=== PATIENT | male | born 1980 | race Asian ===

== ENCOUNTER 2017-12-12 11:27 | Emergency (ER) | payer BC ==
[~2017-12-12] VITALS: Ht 177.8 cm; Wt 87.1 kg
[2017-12-12 11:33] VITALS: BP_SYST 147
--- NOTE | 2017-12-12 11:35 | NUR ---
Placed in room 03 . Placed on property assessment monitor, blood pressure machine and pulse oximeter. To gown for exam. Side rails up. Report given to Judith FREIRE by Nate FREIRE.
--- NOTE | 2017-12-12 11:38 | NUR ---
Pt complains of pain to left of underarm that radiates to shoulder, forearm and wrist since yesterday. Pt states at times it radites to chest. Per patient, he thought he was sore from doing physical activities the day before but today pain was still present. Per patient, he complains of "pinching" pain. Pt states he has been nauseous, but denies vomiting. No shortness of breath noted. No other injuries/complaints per patient or noted.
--- NOTE | 2017-12-12 11:39 | NUR ---
ER Dr. Figueroa at bedside examining patient.
--- NOTE | 2017-12-12 11:48 | NUR ---
Radiology at patient bedside. Pt tolerated well.
[2017-12-12] MEDS: KETOROLAC TROMETHAMINE 60 MG/2 ML VIAL IM ONE (11:53)
--- NOTE | 2017-12-12 11:56 | NUR ---
Medication was given, pt tolerated well. No adverse reaction, will continue to monitor.
[2017-12-12 12:25] LABS: BASOPHILS # (AUTO) 0.1 K/uL (0.0-0.2); BASOPHILS % (AUTO) 1.3 % (0.0-2.0); EOSINOPHILS # (AUTO) 0.1 K/uL (0.0-0.4); EOSINOPHILS % (AUTO) 1.8 % (0.0-4.0); HEMOGLOBIN 17.5 g/dL (14.0-18.0); LYMPHOCYTES # (AUTO) 1.8 K/uL (1.0-5.5); LYMPHOCYTES % (AUTO) 22.2 % (20.5-51.5); MEAN CORPUSCULAR HEMOGLOBIN 30 pg (27-31); MEAN CORPUSCULAR HGB CONC 34 % (32-36); MEAN CORPUSCULAR VOLUME 89 fL (79.0-98.0); MONOCYTES # (AUTO) 0.4 K/uL (0.0-1.0); MONOCYTES % (AUTO) 4.6 % (1.7-9.3); NEUTROPHILS # (AUTO) 5.9 K/uL (1.8-7.7); NEUTROPHILS % (AUTO) 70.1 % (40.0-70.0); PLATELET COUNT (AUTO) 275 K/uL (130-430); RED BLOOD CELL COUNT(AUTO) 5.82 MIL/uL (4.2-6.2); RED CELL DISTRIBUTION WIDTH 11.3 % (9.0-15.0); WHITE BLOOD COUNT (AUTO) 8.3 K/uL (4.8-10.8)
[2017-12-12] MEDS: ONDANSETRON 4 MG ODT TAB PO ONE (12:26)
[2017-12-12 12:39] LABS: CALCIUM 10.3 mg/dL (8.4-11.0); CREATININE 1.05 mg/dL (0.55-1.30); POTASSIUM 3.7 mmol/L (3.5-5.1)
[2017-12-12 12:44] LABS: ALBUMIN 4.4 g/dL (3.4-4.8); TOTAL BILIRUBIN 1.2 mg/dL (0.0-1.0)
--- NOTE | 2017-12-12 12:51 | NUR ---
Pt resting comfortably in hospital bed. No acute distress. Will continue to monitor.
[2017-12-12 13:23] VITALS: BP_SYST 132
--- NOTE | 2017-12-12 13:25 | NUR ---
Patient given written and verbal discharge instructions and verbalizes understanding. ER MD discussed with patient the results and treatment provided. Patient in stable condition. ID arm band removed. Rx of Naproxen and Antivert given. Patient educated on pain management and to follow up with PMD. Pain Scale 0/10. Opportunity for questions provided and answered.
== END 2017-12-12 13:23 | disposition home or self-care (01) ==
LOC: SED 11:27
DX: R07.89 Other chest pain (principal); Z88.0 Allergy status to penicillin
CPT/HCPCS: 36415; 71045; 80053; 84484; 85025; 93005; 96372; 99285; J1885; Q0162